=== PATIENT | female | born 1945 | race Caucasian/White ===

== ENCOUNTER 2018-11-29 10:40 | Inpatient (IN) ==
[2018-11-29] MEDS ORDERED: VANCOMYCIN INJ 1,250 MG in SODIUM CHLORIDE 0.9% 250 ML IV STA (12:54)
[2018-11-29] MEDS ORDERED: SODIUM CHLORIDE 0.9% 500 ML IV STA (12:54)
[2018-11-29 13:39] LABS: Basophils % 0.4 % (0.0-0.8); Eosinophils % 0.1 % (0.00-10.9); Hematocrit 37.8 VOL% (35.7-47.0); Hemoglobin 11.9 GM/DL (12.0-16.0); Immature Granulocytes % 1.3 %; Lymphocytes % 12.6 % (21.3-54.2); Mean Corpuscular HGB Conc 31.5 GM/DL (32-36); Mean Corpuscular Hemoglobin 30 PG (27-34); Mean Corpuscular Volume 93.8 FL (87-102); Mean Platelet Volume 11.1 FL (9.6-12.0); Monocytes # 0.7 10*3/uL (0.11-0.8); Neutrophils # 5.8 10*3/uL (1.4-7.4); Neutrophils % 76.6 % (38.7-73.9); Platelet Count 175 T/CUMM (130-400); Red Blood Count 4.03 MC/CUMM (3.8-5.5); Red Cell Distribution Width 14.5 % (9.3-17.3); White Blood Count 7.6 T/CUMM (4-12)
[2018-11-29 14:57] LABS: Calcium 8.7 MG/DL (8.5-10.1); Potassium 3.5 MMOL/L (3.5-5.1)
[2018-11-29] MEDS ORDERED: ONDANSETRON 4 MG/2 ML VIAL IV PRN (15:08)
[2018-11-29] MEDS ORDERED: PROMETHAZINE 25 MG/1 ML VIAL IM PRN (15:08)
[2018-11-29] MEDS ORDERED: ACETAMINOPHEN 325 MG TABLET PO PRN (15:08)
[2018-11-29] MEDS: ENOXAPARIN 40 MG/0.4 ML SYRINGE SUBCUT SCH (16:39)
[2018-11-29] MEDS: PANTOPRAZOLE 40 MG TABLET PO SCH (16:39)
[2018-11-29] MEDS: CEFTAROLINE 600 MG in SODIUM CHLORIDE 0.9% 100 ML IV SCH (16:50)
[2018-11-29] MEDS: SODIUM CHLORIDE 0.9% 1,000 ML IV SCH (16:50)
[2018-11-29 16:54] LABS: Apearance,Urine CLEAR (Clear); Bilirubin,Urine Negative (Negative); Blood, Urine Negative (Negative); Glucose,Urine (UA) Negative (Negative); Ketones,Urine Negative (Negative); Mucus,Urine Occasional /LPF (Occasional); Nitrite,Urine Negative (Negative); Protein,Urine Negative; RBC,Urine <1 /HPF (0-4); Urine Color Straw (Yellow); Urine Specific Gravity 1.009 (1.001-1.035); Urine Urobilinogen < 2.0 EU/DL (0.2-1.0); WBC,Urine <1 /HPF (0-6)
[2018-11-30] MEDS: CEFTAROLINE 600 MG in SODIUM CHLORIDE 0.9% 100 ML IV SCH ×2 (04:27→21:21)
[2018-11-30] MEDS: SODIUM CHLORIDE 0.9% 1,000 ML IV SCH (04:28)
[2018-11-30 06:03] LABS: Basophils % 0.4 % (0.0-0.8); Hematocrit 34.3 VOL% (35.7-47.0); Hemoglobin 10.6 GM/DL (12.0-16.0); Immature Granulocytes % 1.2 %; Immature Granulocytes Absolute 0.06 #; Lymphocytes # 1.2 10*3/uL (1.4-4.0); Lymphocytes % 24.9 % (21.3-54.2); Mean Corpuscular HGB Conc 30.9 GM/DL (32-36); Mean Corpuscular Hemoglobin 30 PG (27-34); Mean Corpuscular Volume 96.1 FL (87-102); Mean Platelet Volume 11.4 FL (9.6-12.0); Monocytes # 0.6 10*3/uL (0.11-0.8); Monocytes % 11.1 % (1.7-12.7); Neutrophils # 3.1 10*3/uL (1.4-7.4); Neutrophils % 62.4 % (38.7-73.9); Platelet Count 140 T/CUMM (130-400); Red Blood Count 3.57 MC/CUMM (3.8-5.5); Red Cell Distribution Width 14.6 % (9.3-17.3); White Blood Count 4.9 T/CUMM (4-12)
[2018-11-30 07:02] LABS: Albumin 2.8 G/DL (3.4-5.0); Bilirubin,Total 1.2 MG/DL (0.2-1.0); Calcium 7.8 MG/DL (8.5-10.1); Osmolality,Calculated 286.7 MOS/KG (273-304); Potassium 3.2 MMOL/L (3.5-5.1); Risk Ratio 1.9; Thyroid Stimulating Hormone 2.14 uIU/ml (0.358-3.74); Total Protein 5.7 G/DL (6.4-8.3); VLDL CHOLESTEROL 20.8 MG/DL
[2018-11-30] MEDS: sulfaSALAzine 500 MG TABLET PO SCH ×2 (08:49→21:20)
[2018-11-30] MEDS: predniSONE 5 MG TABLET PO SCH (08:49)
[2018-11-30] MEDS: amLODIPine 10 MG TABLET PO SCH (08:49)
[2018-11-30] MEDS: PANTOPRAZOLE 40 MG TABLET PO SCH (08:49)
[2018-11-30] MEDS: ENOXAPARIN 40 MG/0.4 ML SYRINGE SUBCUT SCH (08:54)
[2018-11-30] MEDS ORDERED: POTASSIUM CHLORIDE RIDER 10 MEQ in PREMIX 1 EACH IV PRN (08:55)
[2018-11-30] MEDS: POTASSIUM CHLORIDE 20 MEQ TABLET PO PRN ×3 (10:49→16:59)
[2018-11-30] MEDS ORDERED: SKIN HEALING OINT (AQUAPHOR) 50 GM TUBE TOP PRN (14:19)
[2018-12-01] MEDS: SODIUM CHLORIDE 0.9% 1,000 ML IV SCH (04:07)
[2018-12-01 05:54] LABS: Basophils % 0.4 % (0.0-0.8); Eosinophils % 0.2 % (0.00-10.9); Hematocrit 36.1 VOL% (35.7-47.0); Hemoglobin 11.2 GM/DL (12.0-16.0); Immature Granulocytes % 1.3 %; Immature Granulocytes Absolute 0.07 #; Lymphocytes # 1.2 10*3/uL (1.4-4.0); Lymphocytes % 21.4 % (21.3-54.2); Mean Corpuscular Hemoglobin 30 PG (27-34); Mean Platelet Volume 11.4 FL (9.6-12.0); Monocytes # 0.5 10*3/uL (0.11-0.8); Monocytes % 9.3 % (1.7-12.7); Neutrophils # 3.7 10*3/uL (1.4-7.4); Neutrophils % 67.4 % (38.7-73.9); Platelet Count 157 T/CUMM (130-400); Red Cell Distribution Width 14.5 % (9.3-17.3); White Blood Count 5.5 T/CUMM (4-12)
[2018-12-01 06:12] LABS: Albumin 2.9 G/DL (3.4-5.0); Bilirubin,Total 1.1 MG/DL (0.2-1.0); Calcium 8.4 MG/DL (8.5-10.1); Osmolality,Calculated 280.3 MOS/KG (273-304); Potassium 3.6 MMOL/L (3.5-5.1); Total Protein 6.2 G/DL (6.4-8.3)
[2018-12-01] MEDS: CEFTAROLINE 600 MG in SODIUM CHLORIDE 0.9% 100 ML IV SCH (09:47)
[2018-12-01] MEDS: sulfaSALAzine 500 MG TABLET PO SCH (09:49)
[2018-12-01] MEDS: PANTOPRAZOLE 40 MG TABLET PO SCH (09:49)
[2018-12-01] MEDS: amLODIPine 10 MG TABLET PO SCH (09:49)
[2018-12-01] MEDS: predniSONE 5 MG TABLET PO SCH (09:49)
[2018-12-01] MEDS: ENOXAPARIN 40 MG/0.4 ML SYRINGE SUBCUT SCH (09:49)
[2018-12-01 11:56] VITALS: BP 166/87
== END 2018-12-01 15:50 | disposition home health service (06) | DRG 603 ==
LOC: N.ED 10:40 → N.EDINP 10:40 → SUATTDRO 15:08 → N.2E 17:42 → SUATTDRO 11-30 12:16
PROVIDERS: ADMIT Emergency Medicine; ATTEND Internal Medicine